=== PATIENT | female | born 1970 | race Caucasian/White ===

== ENCOUNTER 2016-12-30 19:29 | Emergency (ER) | payer OTHER ==
[2016-12-30 19:34] VITALS: BP 153/96; PULSE 94; RESP 20; O2SAT 100
--- NOTE | 2016-12-30 21:13 | ED.REPORT ---
HPI-General Illness Date of Service Dec 30, 2016 ED Provider: Anrdessa Katz MD The patient is a 46 year old female who presents to the ED due to a throbbing, 3 /10 headache, in the upper left lobe onset today. C/o associated headaches, chills, sore throat, memory problems and lack of sleep for the past week. Pt has a long hx of mild head injuries and concussions. Earlier this week, she hit her head on the opening of her car door and did not lose consciousness, but later felt disoriented. She went to 2 days ago and they told her if her symptoms increased in severity, to go to the ED. She had a cyst in her head that was discovered on Saturday at . She denies nausea, vomiting, and diarrhea. Pt is a very poor historian. Nursing Notes Stated Complaint: FORGETFULLNESS,CYST ON BRAIN PER CAT SCAN Chief Complaint: Neuro Symptoms/ Deficits Nursing Notes Reviewed: Yes Allergies: Coded Allergies: acetaminophen (Verified Allergy, Unknown, doesnt work, 12/30/16) codeine (Verified Allergy, Unknown, 12/30/16) hydrocodone (Verified Allergy, Unknown, doesnt work, 12/30/16) General Time Seen by MD: 21:13 Chief Complaint Headache Hx Obtained From: Patient Arrived By: Walk-in Sudden in Onset?: Yes Onset Occurred: Yesterday Symptom Duration: Since onset Location: : Head Quality: Painful, Throbbing Severity: Current: Pain level 3 out of 10 Severity: Maximum: Pain level 8 out of 10 Recent Healthcare: Recent doctor visit Similar Sx Previous: Yes Past Medical History Past Medical History hx of mild head injuries and concussions migraines Past Surgical History denies Smoking History Unknown if Ever Smoker Social History Other Social History: Local resident Ambulatory Status Independent Review of Systems Full Review of Systems Constitutional: Reports: Chills Ears / Nose / Throat: Reports: Sore throat GI: Denies: Diarrhea, Nausea, Vomiting Neurologic: Reports: Headache, Denies: Change LOC Complete sys rev & neg: except as marked. Physical Exam Vital Signs Vital Signs Date Time Temp Pulse Resp B/P Pulse Ox O2 Delivery O2 Flow Rate FiO2 12/30/16 19:34 36.9 94 20 153/96 100 Room Air Initial VS: Reviewed, Vital signs abnormal Head / Eyes: Atraumatic, Normocephalic, PERRL ENT: Mucous membranes moist, Conjunctiva normal Neck: Supple, Non-tender Respiratory: Breath sounds normal, Clear to auscultation, No respiratory distress Cardiovascular: Regular rate & rhythm, Heart sounds normal, Intact distal pulses Abdomen / GI: Soft, Non-tender, No guarding, No rebound, No distention Lymphatic: No lymphadenopathy Extremities: Vascular intact, Neuro intact, No swelling, No tenderness Skin: Warm, Dry Psychiatric: Mood/affect normal, Behavior normal Re-Eval/Medical Decision Med Decision/Clinical Course The patient has multiple concerns and difficult history to follow. It seems she is most concerned about this cyst she was told she had, in looking at the report there is a possibility of a cyst. The patient she needs to follow-up with her doctor in order to get an MRI. As far as the patient's other symptom she may indeed have a concussion related to her head injury and she also has some headaches likely related to her allergies as she says she gets them this time of year for several years. Some of her symptoms are likely related to her lack of sleep as well, I explained this to her and again encouraged her to follow-up with her doctor. Counseled Regarding: Diagnosis, Lab results, Need for follow-up, When/why to return to ED Discharge & Departure Primary Impression: Concussion Encounter type: subsequent encounter Loss of consciousness presence/duration : without LOC Qualified Code: S06.0X0D - Concussion without loss of consciousness, subsequent encounter Disposition: Home Discharge Condition All VS Reviewed: Yes Condition: Stable Additional Instructions: Your CT scan from urgent care shows that it is not clear that you have a cystic legion. you may have one. It is important that you follow up with your doctor soon, you can have the MRI at the at time. As far as the repeated hitting of your head, considered doses of omega 3 fatty acids, see the attached form. It is important to follow up with your doctor for ongoing treatment and evaluation. Your lack of sleep is probably contributing to your forgetfulness. Referrals: Chapo Acharya DO (PCP) Jailene Attestation Portion of this note were transcribed by Jane Parikh. I, Dr. Katz, personally performed the history, physical exam, and medical decision-making: I reviewed and confirmed the accuracy for the information in the transcribed note. Signed by: jailene Estrada, 12/30/16 2300 copies to: Chapo Acharya Jena M MD Dec 30, 2016 21:13 Jane Parikh Dec 30, 2016 21:31
== END 2016-12-30 22:03 | disposition home or self-care (01) ==
LOC: SED 19:29
DX: S06.0X0D Concussion without loss of consciousness, subsequent encounter (principal); W22.8XXD Striking against or struck by other objects, subsequent encounter; Y93.9 Activity, unspecified; Y92.9 Unspecified place or not applicable; Y99.8 Other external cause status; Z88.6 Allergy status to analgesic agent; Z88.5 Allergy status to narcotic agent

== ENCOUNTER 2017-01-06 10:42 | Emergency (ER) | payer OTHER ==
[~2017-01-06] VITALS: Ht 162.6 cm; Wt 79.5 kg
[2017-01-06 10:56] VITALS: BP 156/80; PULSE 90; RESP 18; O2SAT 99
--- NOTE | 2017-01-06 11:42 | ED.REPORT ---
HPI-Headache Date of Service Jan 06, 2017 ED Provider: Rosa Kwok History of Present Illness: 46-year-old female here for a follow-up on head pain. Sounds like she has had head pain for years. She was seen here and had a CAT scan about a week ago and showed a possible cyst at the foramen of coleman and that she needs to follow up with an MRI through her PCP. She did follow with her PCP the MRI is not scheduled yet and she would like an emergent MRI done today. She comes with an email from a friend that documents her medical history she is likely involves many years of headaches but she says this particular headache has been going on for 40 days. 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 She also fell from a car and hit her head on concrete prior to her previous visits, about 5 weeks ago, has already been worked up for this. She also has a hx of many concussions throughout the years. Her family is here with her to help navigate the medical system. She is very upset and agitated and frustrated. She and her family complain of a change of personality, she is more anxious/aggitated. Pt states she is slurring her speach, having short term memory loss, can't find her words when she talks. Unknown exactly how long this has been going on, family noted personality change since xmas. 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 NO known mental health issue. Nursing Notes Stated Complaint: HEADPAIN Chief Complaint: Neuro Symptoms/ Deficits Nursing Notes Reviewed: Yes Allergies: Coded Allergies: acetaminophen (Verified Allergy, Unknown, doesnt work, 12/30/16) codeine (Verified Allergy, Unknown, 12/30/16) hydrocodone (Verified Allergy, Unknown, doesnt work, 12/30/16) General Time Seen by MD: 11:15 Chief Complaint Headache Hx Obtained From: Patient Arrived By: Walk-in Sudden in Onset?: No Onset Occurred: Onset unknown Symptom Duration: Since onset Location: : Frontal left: Frontal right Severity: Current: Severe Severity: Maximum: Severe Recent Healthcare: Recent doctor visit, Previous diagnosis Similar Sx Previous: Yes Past Medical History Past Medical History hx of mild head injuries and concussions migraines Past Surgical History denies Smoking History Unknown if Ever Smoker Social History Other Social History: Local resident Ambulatory Status Independent Review of Systems Review of Systems Note: FLETCHER, personality change, slurred speach, memory loss Unable to Obtain ROS Uncooperative Basic Review of Systems Respiratory: No shortness of breath, No cough, No wheeze Cardiovascular: No chest pain, No dyspnea on exertion, No orthopnea, No parox noct dyspnea, No palpitations Constitutional: Denies: Chills, Fatigue, Fever Eyes: Reports: Blurred bilateral, Eye pain bilateral, Visual loss bilateral GI: Reports: Abdominal pain, Denies: Diarrhea Musculoskeletal: Reports: Back pain, Extremity pain Neurologic: Reports: Confusion, Dizziness, Headache, Slurred speech, Denies: Lightheaded, Numbness, Problem walking, Seizure, Shaking, Spinning sensation, Syncope, Unable to speak, Vision change, Weakness Psychiatric: Reports: Agitation, Anxiety, Change mental status, Insomnia, Stress, Denies: Suicidal ideation, Unable to control self Complete sys rev & neg: except as marked. Physical Exam Physical Exam Notes: CN 2-12 WNL. Initial Vital Signs Vital Signs (First) Date Time Temp Pulse Resp B/P Pulse Ox O2 Delivery O2 Flow Rate FiO2 01/06/17 10:56 36.7 90 18 156/80 99 Room Air Initial VS: Reviewed, Vital signs normal ENT: Mucous membranes moist, Conjunctiva normal, No scleral icterus Respiratory: Breath sounds normal, Clear to auscultation, No respiratory distress Cardiovascular: Regular rate & rhythm, Heart sounds normal, Intact distal pulses Abdomen / GI: Soft, No guarding, No rebound, No distention Skin: Warm, Dry, No cyanosis General/Constitutional: Awake, Alert, Well appearing, Well developed, Well hydrated Behavior: Positive: Aggressive, Agitated, Anxious, Tearful loss of words with conversation, some slurring. some memory loss of previous parts of our conversation Head / Eyes: Normocephalic, PERRL, EOMI, No nystagmus, No photophobia, Conjunctiva NL, Temporal arteries NL Neck: Full range of motion, No adenopathy, No swelling, No midline vertebral tend, No carotid bruit, Thyroid NL generalized neck tenderness, paracervical msk and trap Neurologic: Oriented X3, No motor deficits, No sensory deficits, CN II - XII intact, Cerebellar NL, Gait NL Speech: Positive: Slurred Movement Abnormality: Negative: Akathisia, Athetosis, Chorea, Dystonia, Essential tremor, Myoclonus, Patellar, Tic disorder, Tremor, Tremor - Parkinsonian, Tremor - intention, Tremor - pill rolling, Tremor - resting Gait Abnormality: Negative: Antalgic gait, Shuffling gait, Staggering gait, Unable to walk, Walks with assistance walks on heals, toes, and heel to toe. balance normal ENT: Airway patent, Mucous membranes moist, Pharynx NL, No sinus tenderness Respiratory / Chest: Breath sounds NL, Breath sounds = bilat, No respiratory distress, No rales, No rhonchi, No wheezing Cardiovascular: Heart rate NL, Regular rhythm, Heart sounds NL, Peripheral circulation NL mild L low back tenderness, swelling to L hip R ATFL tenderness, mild swelling. Has FROM Interpretation & Diagnostics Interpretation & Diagnostics: Patient Name: OTTONIEL SINHA MR#: [id number] [place] [facility] [place] Ordering Phys: Rosa Kwok Date of Service: 01/06/17 1547 PROCEDURE: MRI BRAIN WITH AND WITHOUT CONTRAST ([id number]) INDICATIONS: FLETCHER, personality change TECHNIQUE: Noncontrast axial T1 spin echo, axial T2 fast spin echo, sagittal and axial FLAIR, coronal T2 fast spin echo, axial gradient echo, axial diffusion and ADC through the brain. After the administration of contrast, axial and coronal 3D VIBE or T1 spin echo with fat saturation through the brain. COMPARISON: [facility], CT, CT BRAIN WO CON, 12/25/2016, 14:23. FINDINGS: Image quality: Excellent. CSF Spaces: Basal cisterns are patent. No extra-axial fluid collections. Asymmetric enlargement of left lateral ventricle as before. There is associated midline shift measuring 3 mm which is grossly unchanged since prior head CT dated 12/25/16. No focal lesion seen in the region of the foramen of Monro. Brain: No midline shift. No intracranial bleeds or masses. No abnormal intracranial enhancement. The brainstem appears normal. Diffusion-weighted images demonstrate no acute ischemic insults. No chronic ischemic insults. Normal intravascular flow voids are present. Skull and face: Calvarial marrow is normal in signal. Orbits appear normal. Sinuses: Sinuses and mastoids appear clear. IMPRESSION: Persistent asymmetric mild hydrocephalus involving the left lateral ventricle, with unchanged rightward midline shift since 12/25/16 (although technically age-indeterminate). No discrete lesion seen in the region of the foramen of Monro. Recommend clinical correlation, and as clinically necessary, neurosurgical consultation. No abnormal enhancement. Findings were personally telephoned and discussed with Dr. Kwok in the emergency department 01/06/17 1705 hrs. Dictated by: Antony Vidal M.D. on 01/06/2017 at 16:53 Approved by: Antony Vidal M.D. on 01/06/2017 at 17:07 Lab Results Interpretation Result Diagram: 01/06/17 1241 01/06/17 1241 Test 01/06/17 12:24 01/06/17 12:41 01/06/17 13:13 Hold David Top Tube Received (Received) White Blood Count 6.1th/mm3 (3.8-10.1) Red Blood Count 4.03mil/mm3 (3.90-5.20) Hemoglobin 13.5g/dL (12.0-15.6) Hematocrit 40.0% (35.0-46.0) Mean Corpuscular Volume 99.3fL (81-100) Mean Corpuscular Hemoglobin 33.5pg (27.0-35.0) Mean Corpuscular Hemoglobin Concent 33.8% (32.0-37.0) Red Cell Distribution Width 12.6% (12.3-15.4) Platelet Count 266bil/L (150-400) Sodium Level 135mEq/L (134-144) Potassium Level 4.2mEq/L (3.5-5.2) Chloride Level 102mEq/L (97-108) Carbon Dioxide Level 20mmol/L (18-29) Blood Urea Nitrogen 13mg/dL (6-24) Creatinine 0.42mg/dL (0.57-1.00) Estimat Glomerular Filtration Rate 235mL/min (>59) Glucose Level 92mg/dL (60-99) Calcium Level 9.2mg/dL (8.5-10.1) Magnesium Level 1.9mg/dL (1.6-2.6) Total Bilirubin 0.7mg/dL (0.0-1.2) Aspartate Amino Transf (AST/SGOT) 19U/L (0-50) Alanine Aminotransferase (ALT/SGPT) 15U/L (0-32) Alkaline Phosphatase 46U/L (25-150) Total Protein 7.0g/dL (6.4-8.4) Albumin 4.3g/dL (3.4-5.0) Thyroid Stimulating Hormone (TSH) 0.785uIU/mL (0.450-4.500) HCG Beta Subunit < 0.500mIU/mL Hold Urine Received (Received) Re-Eval/Medical Decision Med Decision/Clinical Course Patient very frustrated, agitated, anxious upon first arrival to emergency room. Family is in the room at this time. She is constantly asking to smoke. She does seem to lose her words and some of her words are slurred. She often goes back to topics we have already addressed not remembering that we have already talked about them. Once her family leaves she is much more cooperative. She has since been much happier and agreeable to treatment. Family is worried about a change in mental status. In the last few weeks she has been much more agitated. No history of mental health issues. 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 She does have a history of migraines that she gets every December. There was a head injury 5 weeks ago when this headache started. 1500 awaiting MRI 174: [facility] neuro paged, ran case by supervising doctor Dr Alcazar. pt wondering around halls in [facility] [address]54 Dr Mendiola at [facility] orally reviewd case and MRI finding. Not concerning for acute injury. F/u with neurology this week for eval. pt upset that nothing was done about her FLETCHER. discussed we ruled out a life threatening condition. She should follow up with neurology for further care on her headaches. Called Dannie her brother and discussed findings and plan with him as well at her request. He understands and will assist her in follow-up. pt did leave understanding Discharge & Departure Shift Change Sign-Out Laboratory Evaluation: Lab evaluation discussed Imaging Studies: Imaging discussed Procedures: Results discussed Response to Therapy: Improved Impression: Primary Impression: Headache Headache type: unspecified Headache chronicity pattern: unspecified pattern Intractability: intractable Qualified Code: R51 - Headache Additional Impression: Hydrocephalus Disposition: Home Discharge Condition All VS Reviewed: Yes Condition: Critical Patient Instructions: Acute Headache (ED) Additional Instructions: Nothing emergent was found today in your labs/MRI. You should followup with neurology this week. You may call [facility] at [place] at [phone]. or a local neurologist, number provided. whomever can get you in first would be fine. You should talk to them about your findings and your headaches. Otherwise , followup with your doctor in 1-2 days. return for worsening symptoms. Call the outpatient counselor for mental health assistance. Try to reduce stress. Drink lots of water and rest. Referrals: Chapo Acharya DO (PCP) Jd Jimenez MD EDSupervising Provider for APC: Lonnie Gutiérrez DO copies to: Lonnie Gutiérrez Linnea K ARNP Jan 06, 2017 11:42
[2017-01-06 12:48] LABS: Mean Corpuscular Hemoglobin 33.5 pg (27.0-35.0); Mean Corpuscular Volume 99.3 fL (81-100)
[2017-01-06 13:19] LABS: Magnesium 1.9 mg/dL (1.6-2.6)
[2017-01-06 14:58] VITALS: BP 131/61; PULSE 72; RESP 17; O2SAT 98
--- NOTE | 2017-01-06 17:09 | DRSVH ---
PROCEDURE: MRI BRAIN WITH AND WITHOUT CONTRAST ([id number]) INDICATIONS: FLETCHER, personality change TECHNIQUE: Noncontrast axial T1 spin echo, axial T2 fast spin echo, sagittal and axial FLAIR, coronal T2 fast sp in echo, axial gradient echo, axial diffusion and ADC through the brain. After the administration of contrast, axial and coronal 3D VIBE or T1 spin echo with fat saturation through the brain. COMPARISON: [facility], CT, CT BRAIN WO CON, 12/25/2016, 14:23. FINDINGS: Image quality: Excellent. CSF Spaces: Basal cisterns are patent. No extra-axial fluid collections. Asymmetric enlargement of left lateral ventricle as before. There is associated midline shift measuring 3 mm which is grossly u nchanged since prior head CT dated 12/25/16. No focal lesion seen in the region of the foramen of Monr o. Brain: No midline shift. No intracranial bleeds or masses. No abnormal intracranial enhancement. The brainstem appears normal. Diffusion-weighted images demonstrate no acute ischemic insults. No c hronic ischemic insults. Normal intravascular flow voids are present. Skull and face: Calvarial marrow is normal in signal. Orbits appear normal. Sinuses: Sinuses and mastoids appear clear. IMPRESSION: Persistent asymmetric mild hydrocephalus involving the left lateral ventricle, with unchanged rightwa rd midline shift since 12/25/16 (although technically age-indeterminate). No discrete lesion seen in t he region of the foramen of Monro. Recommend clinical correlation, and as clinically necessary, neuro surgical consultation. No abnormal enhancement. Findings were personally telephoned and discussed with Dr. Kwok in the emergency department 01/06/17 1705 hrs. Dictated by: Antony Vidal M.D. on 01/06/2017 at 16:53 Approved by: Antony Vidal M.D. on 01/06/2017 at 17:07
[2017-01-06 18:50] VITALS: BP 138/69; PULSE 79; RESP 19; O2SAT 98
== END 2017-01-06 18:58 | disposition home or self-care (01) ==
LOC: EDBD 10:42 → SED 10:42
DX: R51 Headache (principal); G91.9 Hydrocephalus, unspecified; Z88.5 Allergy status to narcotic agent; Z88.6 Allergy status to analgesic agent
CPT/HCPCS: 36415; 70553; 80053; 83735; 84443; 84702; 85027; 99284; A9585